=== PATIENT | male | born 1990 | race Two or more races ===

== ENCOUNTER → 2017-05-06 19:55 | Emergency (ER) | payer OTHER ==
[2017-05-06 20:05] VITALS: BP 159/100
--- NOTE | 2017-05-06 21:00 | ED ---
GI/ HPI - HPI Summary HPI Summary: Patient presents to the ED with concern for STD's. He endorses unprotected sex and is unsure. He initally received the chlamydia and gonorrha with negative results, but they stated he should come to the ED for syphilis, HIV, and herpes. He denies any symptoms. Denies abd pain, discharge, fevers, sweats or chills. He has never had anything before. Denies health problems. Takes no medications. - History of Current Complaint Chief Complaint: EDRashSkinAbscess Time Seen by Provider: 05/06/17 20:09 Stated Complaint: REQUESTING TESTING Hx Obtained From: Patient Timing: Constant Pain Intensity: 0 - Additional Pertinent History Previous Visit Within 72 Hours for the same complaint: Clinic - Allergy/Home Medications Allergies/Adverse Reactions: Allergies Allergy/AdvReac Type Severity Reaction Status Date / Time No Known Allergies Allergy Verified 05/06/17 20:00 PMH/Surg Hx/FS Hx/Imm Hx Previously Healthy: Yes - Immunization History Hx Pertussis Vaccination: No Immunizations Up to Date: Unable to Obtain/Confirm Infectious Disease History: No Infectious Disease History: Reports: Traveled Outside the [place] in Last 30 Days - Social History Occupation: Employed Full-time Lives: With Family Alcohol Use: Weekly Hx Substance Use: No Substance Use Type: Reports: None Hx Tobacco Use: No Smoking Status (MU): Never Smoked Tobacco Review of Systems Constitutional: Negative Eyes: Negative Cardiovascular: Negative Respiratory: Negative Genitourinary: Negative Positive: no symptoms reported, see HPI Musculoskeletal: Negative Skin: Negative Psychological: Normal All Other Systems Reviewed And Are Negative: Yes Physical Exam Triage Information Reviewed: Yes Vital Signs On Initial Exam: Initial Vitals Temp Pulse Resp BP Pulse Ox 98.2 F 71 16 159/100 100 05/06/17 20:03 05/06/17 20:03 05/06/17 20:03 05/06/17 20:03 05/06/17 20:03 Vital Signs Reviewed: Yes Appearance: Positive: Well-Appearing, Well-Nourished Skin: Positive: Warm, Skin Color Reflects Adequate Perfusion Head/Face: Positive: Normal Head/Face Inspection Eyes: Positive: EOMI, SUNG, Conjunctiva Clear Neck: Positive: Supple, No Lymphadenopathy Respiratory/Lung Sounds: Positive: Clear to Auscultation, Breath Sounds Present Musculoskeletal: Positive: Normal, Strength/ROM Intact Neurological: Positive: Speech Normal Psychiatric: Positive: Normal AVPU Assessment: Alert Diagnostics - Vital Signs Vital Signs Temp Pulse Resp BP Pulse Ox 05/06/17 20:03 98.2 F 71 16 159/100 100 - Laboratory Lab Statement: Any lab studies that have been ordered have been reviewed, and results considered in the medical decision making process. GIGU Course/Dx - Course Course Of Treatment: Patient evaluated for possible STD's. Already seen at [address] [place] [address] and received gonorrhea and chlaymydia testing which was negative. He is requesting syphilis, hiv and herpes. Testing obtained via lab. Will call with positive results. Patient made aware. OK for discharge. - Diagnoses Differential Diagnoses - Male: Other - STD exposure, STD testing, safe sex practices Provider Diagnoses: Screen for STD (sexually transmitted disease) Discharge - Discharge Plan Condition: Stable Disposition: HOME Patient Education Materials: Sexually Transmitted Diseases (ED), Safe Sex (ED) Referrals: Non Staff,Doctor [Primary Care Provider] - Additional Instructions: WE WILL CALL WITH RESULTS OF TESTS IF POSITIVE
[2017-05-07 10:19] LABS: Syphilis Index < 0.1 Index
[2017-05-08 16:23] LABS: Herpes Simplex Virus I IgG AB Positive (Negative); Herpes Simplex Virus II IgG AB Positive (Negative)
== END | disposition home or self-care (01) ==
LOC: ED 19:55
DX: Z11.3 Encounter for screening for infections with a predominantly sexual mode of transmission (principal)
CPT/HCPCS: 36415; 86592; 86695; 86696; 86703; 99281